=== PATIENT | male | born 1965 | race Caucasian/White ===

== ENCOUNTER → 2023-10-08 07:43 | Outpatient (REF) | payer OTHER, SELFPAY | LOC: EMG 07:43 | PROVIDERS: ATTENDING PHYSICIAN Internal Medicine | DX: G62.9 Polyneuropathy, unspecified (principal); M54.16 Radiculopathy, lumbar region | CPT/HCPCS: 95886; 95911 ==

== ENCOUNTER 2024-06-01 17:55 | Emergency (ER) | payer OTHER, SELFPAY ==
[2024-06-01 18:06] VITALS: BP 148/76
--- NOTE | 2024-06-01 21:53 | ED.SKININJ ---
HPI-Injury
General
Chief Complaint: Skin Problem
Source: patient
Exam Limitations: none
Time Seen by Provider: 06/01/24 20:04
History of Present Illness-Injury
Initial Injury comments:
58-year-old male presents with raised bump over the left posterior scapular region. This just started about 2 to 3 days ago. He notes is tender to the touch. He denies skin changes fever or rash. No known injury. No other complaints at this time
Past History
Past History
ED Past Medical History: Other (Colitis, Bronchitis, GI bleeding, Hep C) and Other (History of opiate abuse); Negative Asthma, HTN, Hypercholesterolemia or NIDDM
ED Past Surgical History: Orthopedic
Social History
Tobacco: Smoker
Alcohol: None
Drug: Former user
Personal:
Living: with family
Employment: Other
Family History
Family History: Unable to obtain
Phy Exam
Physical Exam
Physical Exam:
General: Well-appearing male no acute respiratory distress
HEENT: Normocephalic atraumatic
Skin: Raised area of soft mobile tissue over the medial border of the left scapula. This measures about 4 cm in diameter. There is no overlying erythema or induration. No fluctuance.
Extremities: No cyanosis
Course
Orders/Labs/Results
Orders:
Orders
06/01/24 20:12
US Non Vasc UPPER Ext LT Urgent
Comment:
Reason For Exam: swelling, posterior left shoulder abscess vs lipom
Vital Signs
Initial and Last Documented VS:
Initial Vital Signs
Temp Pulse Resp BP Pulse Ox
98.1 F 78 18 148/76 97
06/01/24 18:06 06/01/24 18:06 06/01/24 18:06 06/01/24 18:06 06/01/24 18:06
Last Documented Vital Signs
Temp Pulse Resp BP Pulse Ox
98.1 F 78 18 148/76 97
06/01/24 18:06 06/01/24 18:06 06/01/24 18:06 06/01/24 18:06 06/01/24 18:06
MDM/Problems Addressed
Differential Diagnosis Includes:
Tissue noted left scapular region. Question lipoma abscess hematoma
No sign of infectious process. Will order ultrasound to evaluate for if there is any fluid collection.
Ultrasound of the area was ordered which shows fatty tissue likely a lipoma. No abscess. Patient reassured. Recommend follow-up with general or plastic surgeon if interested in removal. Given
*Critical Care Note
Total Time (30-74mins, 75-104mins- exclusive of procedures): Not Applicable
ED Attending Note
-
Portions of this chart may have been created with voice recognition software.� Occasional wrong word or��sound alike� substitutions may have occurred due to the inherent limitations of voice recognition software.
Discharge Plan
Departure
Patient Disposition: Home (Routine Discharge)
Date of Disposition: 06/01/24
Time of Disposition: 21:55
Patient with high blood pressure during this ER visit?: No
Discharge Problem:
Lipoma
Instructions: Lipoma
Prescriptions:
No Action
atorvastatin 40 MG tablet
40 mg PO QPM Qty: 30 0RF
aspirin 81 MG tablet,chewable
81 mg PO DAILY Qty: 30 0RF
Referrals:
Garry Tracey CRNP [Family Provider] -
Activity Restrictions/Additional Instructions:
As discussed, this is likely a lipoma. Return for worsening pain redness swelling fever. If interested in removal, consider following up with either a general surgeon or plastic surgeon.
Interventions
Interventions:
*Risk Screen - Suicide Last Done: 06/01/24 20:16
*General Assessment Last Done: 06/01/24 20:16
*Neglect/Abuse Screening Last Done: 06/01/24 20:16
ED- Fall Risk Assessment Last Done: 06/01/24 20:16
*ED COVID-19 Vaccine History Last Done: 06/01/24 20:16
ED-Skin Assessment Last Done: 06/01/24 20:17
Discharge Date and Time
Print Language: CYPRIOT
== END 2024-06-01 22:17 | disposition home or self-care (01) ==
LOC: EMR 17:55
PROVIDERS: EMERGENCY PHYSICIAN Emergency Medicine; FAMILY PHYSICIAN Nurse Practitioner Family
DX: D17.22 Benign lipomatous neoplasm of skin and subcutaneous tissue of left arm (principal); F17.200 Nicotine dependence, unspecified, uncomplicated
CPT/HCPCS: 99284; 76882

== ENCOUNTER → 2024-06-29 15:58 | Outpatient (REF) | payer OTHER, SELFPAY | LOC: HWRAD 15:58 | PROVIDERS: ATTENDING PHYSICIAN Nurse Practitioner Family | DX: Z87.891 Personal history of nicotine dependence (principal) | CPT/HCPCS: 71271 ==

== ENCOUNTER → 2024-07-19 14:30 | Outpatient (REF) | payer OTHER, SELFPAY | LOC: RAD 14:30 | PROVIDERS: ATTENDING PHYSICIAN Nurse Practitioner Family | DX: I77.9 Disorder of arteries and arterioles, unspecified (principal) | CPT/HCPCS: 93880 ==

== ENCOUNTER → 2024-09-22 07:54 | Outpatient (REF) | payer OTHER, SELFPAY | LOC: HWRCS 07:54 | PROVIDERS: ATTENDING PHYSICIAN Nurse Practitioner Family | DX: I25.10 Atherosclerotic heart disease of native coronary artery without angina pectoris (principal) | CPT/HCPCS: 93306 ==

== ENCOUNTER 2024-09-28 07:02 | Day surgery (SDC) | payer OTHER, SELFPAY ==
[2024-09-28] VITALS (8 sets, daily range): BP systolic 15–116; BP diastolic 54–70; BMI 26.4
[2024-09-28] MEDS: TYLENOL 1000 MG PO (07:13)
[2024-09-28] MEDS: NORMOSOL-R/PLASMALYTE-A 1000 IV (07:21)
--- NOTE | 2024-09-28 07:24 | W.SUR.PREOP ---
Pre-Operative Surgical Note
-
I have examined this patient prior to the performance of the scheduled procedure.
The patient's condition is unchanged from the time of the current History and
Physical and the patient is able to undergo the scheduled procedure.
--- NOTE | 2024-09-28 07:24 | HP.FOC2 ---
Focused History & Physical
Chief Complaint
HPI:
Chief Complaint: Left upper back lipoma
HPI / Indication for Planned Procedure: Excision of left upper back lipoma
Relevant Past Medical History: Negative
Relevant Social History: Negative
Relevant Family History: Negative
Relevant Past Surgical History: Negative
Review of Systems
Review of Pertinent Systems: All Systems Negative
Medication
See Medication form for detailed medications: Yes
Medication List (including Herbals & OTC):
aspirin 81 mg chewable tablet 81 mg PO DAILY #30 tabs 12/12/21
atorvastatin 40 mg tablet 40 mg PO QPM #30 tabs 12/12/21
cholecalciferol (vitamin D3) 125 mcg (5,000 unit) tablet (Vitamin D3) 125 mcg PO DAILY 09/25/24
mecobalamin (vitamin B12) 1,000 mcg chewable tablet 3,000 mcg PO DAILY 09/25/24
metformin 500 mg tablet,extended release 24 hr 500 mg PO QPM 09/25/24
Medications Reviewed: Yes
Allergies and Reactions
Patient has Allergies: No
Noted Allergies and Reactions:
Allergy/AdvReac Type Severity Reaction Status Date / Time
No Known Allergies Allergy Verified 09/28/24 07:05
Pertinent Physical Exam
All Other Systems: Negative
Head/Neck: Normal
Diagnosis / Assessment
This is a 59-year-old male with a symptomatic left upper back lipoma
Plan / Procedure
Will plan for excision of left upper back lipoma.
Anesthesia/Sedation to be done by Anesthesia Provider: Yes
--- NOTE | 2024-09-28 08:12 | W.IMMPOSTOP ---
Surgical Immed Post Op Note
-
Primary Surgeon: Jaylon Casillas MD
Assisting Surgeon: None
Pre-op Diagnosis: Left upper back lipoma
Post-op Diagnosis: Left upper back lipoma, intramuscular
Procedure Performed: Excision of intramuscular lipoma, left upper back
Anesthesia Type: General
Specimen / Cultures: Lipoma of the left upper back
Estimated Blood Loss: 1 cc
Complications: None
Operative Findings: 6.5 by a 5.5 x 1 cm intramuscular encapsulated lipoma of the left upper back, removed entirely. Wound closed in layers with 3-0 Vicryl suture followed by 4-0 Monocryl and Dermabond.
--- NOTE | 2024-09-28 08:13 | OR.RPT ---
Operative Report
Operative Report
Patient Name: Cecil Elizalde
: 1965
Date of Operation: 09/28/2024
Preoperative Diagnosis: Lipoma, left upper back
Postoperative Diagnosis: Intramuscular lipoma, left upper back
Procedure(s):
Excision of intramuscular lipoma, left upper back
Surgeon(s):
Dr. Casillas
Medical Screener(s):
GERMAINE Jurado
Anesthesia: MAC
Estimated Blood Loss: 1 cc
Urine Output: None
Drains/Lines/Implants: None
Specimens:
1. Lipoma, left upper back
Indication for surgery:
This is a 59-year-old male with a lump on his back that he is known for several years. After evaluation in the office he was diagnosed with a lipoma. After discussion of risk benefits and alternatives he elected and was consented for surgery.
Operative Findings: 6.5 x 5.5 x 1 cm intramuscular encapsulated lipoma of the left upper back, removed entirely. Wound closed in layers with 3-0 Vicryl suture followed by 4-0 Monocryl and Dermabond.
Details of the operation:
The patient was brought to the operating room a placed in the prone supine position. After appropriate sedation by anesthesia, the area of the back was prepped and draped in the usual fashion. A linear incision over natural skin line was made over
the mass and carried down through the subcutaneous tissue. Lipoma was actually noted to be deep to this so the fascia of the underlying muscle was incised and the lipoma was identified. It was then freed circumferentially taking care not to come
across the many interdigitating extensions that it had. The specimen which measured roughly 6.5 x 5.5 x 1 cm and was passed off the field. The cavity was irrigated and hemostasis was achieved. The wound was closed in layers with interrupted 3-0
Vicryl sutures. The dermis was then approximated using interrupted 3-0 Vicryl suture, followed by a running 4-0 Monocryl subcuticular suture, followed by Dermabond. All counts were correct at the end of procedure. The patient was then transferred
to the PACU for recovery.
I was the attending physician and performed the procedure with assistance of the PA above. The assistance of GERMAINE Jurado was required due to the complexity of the procedure. During the procedure Teresa assisted with retraction, resection, and
closure of the wound. I was present for all portions of the case, excluding skin closure.
Jaylon Casillas MD
== END 2024-09-28 09:38 | disposition home or self-care (01) ==
LOC: SDS 07:02
PROVIDERS: ATTENDING PHYSICIAN Surgery
DX: D17.1 Benign lipomatous neoplasm of skin and subcutaneous tissue of trunk (principal)
CPT/HCPCS: 21931; 88304

== ENCOUNTER → 2024-10-12 07:32 | Outpatient (REF) | payer OTHER, SELFPAY | LOC: RCS 07:32 | PROVIDERS: ATTENDING PHYSICIAN Nurse Practitioner Family | DX: I25.10 Atherosclerotic heart disease of native coronary artery without angina pectoris (principal) | CPT/HCPCS: 93017 ==

== ENCOUNTER → 2024-12-05 07:52 | Outpatient (REF) | payer OTHER, SELFPAY | LOC: RSP 07:52 | PROVIDERS: ATTENDING PHYSICIAN Nurse Practitioner Family | DX: R07.89 Other chest pain (principal) | CPT/HCPCS: 94010 ==

== ENCOUNTER → 2024-12-21 08:06 | Outpatient (REF) | payer OTHER, SELFPAY | LOC: HWRCS 08:06 | PROVIDERS: ATTENDING PHYSICIAN Internal Medicine Cardiovascular Disease; FAMILY PHYSICIAN Nurse Practitioner Family | DX: R07.2 Precordial pain (principal) | CPT/HCPCS: 78452; 93017; A9500; J2785 ==